=== PATIENT | female | born 1960 | race Caucasian/White ===

== ENCOUNTER 2019-08-15 21:41 | Inpatient (IN) ==
[2019-08-15] MEDS ORDERED: Ondansetron 4 mg VIAL 2 MG/ML 2 ml VIAL IV ONE (22:49)
[2019-08-15] MEDS ORDERED: Morphine 4 MG/ML VIAL (1 ml) IV ONE (22:49)
[2019-08-16 00:07] LABS: ABS Basophils 0.1 10^3/ul (0-0.2); ABS Lymphocytes 0.5 10^3/ul (1.0-4.8); ABS Monocytes 0.3 10^3/ul (0-0.8); Eosinophil % 0.1 %; Hematocrit 39 % (35-47); Hemoglobin 13.4 g/dL (12.0-16.0); Lymphocyte % 7.6 %; Mean Corpuscular HGB Conc 34 g/dL (31-36); Mean Corpuscular Hemoglobin 33 pg (27-31); Mean Corpuscular Volume 96 fL (80-97); Mean Platelet Volume 8.4 fL (7.4-10.4); Platelet Count 213 10^3/uL (150-450); Red Blood Count 4.06 10^6 /uL (3.70-4.87); Red Cell Distribution Width 14 % (10-15); White Blood Count 7.1 10^3/uL (3.5-10.8)
[2019-08-16 00:08] LABS: Urine Appearance Cloudy; Urine Bilirubin Negative (Negative); Urine Blood Negative (Negative); Urine Color Yellow; Urine Glucose 3+(>=500 mg/dL) (Negative); Urine Ketones 2+ (Negative); Urine Nitrite Negative (Negative); Urine Protein 1+(30 mg/dL) (Negative); Urine Specific Gravity 1.029 (1.010-1.030); Urine Urobilinogen Negative (Negative)
[2019-08-16 00:17] LABS: Urine Bacteria Absent (Absent); Urine Red Blood Cell Absent (Absent); Urine Squamous Epithelial Cell Present (Absent); Urine White Blood Cell 3+(>20/hpf) (Absent)
[2019-08-16 00:28] LABS: ALT 11 U/L (7-52); AST 13 U/L (13-39); Albumin 3.9 g/dL (3.2-5.2); Albumin/Globulin Ratio 1.6 (1-3); Alkaline Phosphatase 59 U/L (34-104); Anion Gap 25 mmol/L (2-11); BUN/Creatinine Ratio 20.7 (8-20); Blood Urea Nitrogen 19 mg/dL (6-24); C Reactive Protein 9.74 mg/L (<8.01); CO2 Carbon Dioxide 15 mmol/L (22-32); Calcium 8.9 mg/dL (8.6-10.3); Chloride 89 mmol/L (101-111); EGFR African American 75.3 (>60); EGFR Non-African American 62.3 (>60); Globulin 2.5 g/dL (2-4); Glucose 456 mg/dL (70-100); Potassium 3.4 mmol/L (3.5-5.0); Sodium 129 mmol/L (135-145); Total Protein 6.4 g/dL (6.4-8.9)
[2019-08-16] MEDS: NS 0.9% 1000 ml BAG 2,000 ML IV ONE ×2 (00:46→01:12)
[2019-08-16] MEDS ORDERED: Amoxicillin/Clavul 500/125 TAB (Augmentin 500 mg tab) PO ONE (00:54)
[2019-08-16 01:08] LABS: Alcohol, S < 10 mg/dL (<10)
[2019-08-16] MEDS ORDERED: Insulin REGULAR 100 unit/ml(*) IV PUSH ONE (01:16)
[2019-08-16] MEDS ORDERED: Morphine 4 MG/ML VIAL (1 ml) IV ONE (01:17)
[2019-08-16] MEDS ORDERED: Metoclopramide 5 MG/ML VIAL (10 mg) IV SLOW PU ONE (01:17)
[2019-08-16] MEDS ORDERED: Morphine 2 MG/ML SYRINGE IV PRN (01:58)
[2019-08-16] MEDS ORDERED: Ondansetron 4 mg VIAL 2 MG/ML 2 ml VIAL IV PRN (01:58)
[2019-08-16] MEDS ORDERED: NS 0.9% 1000 ml BAG 1,000 ML IV SCH ×2 (02:00→09:15)
[2019-08-16 02:43] LABS: Magnesium 1.7 mg/dL (1.9-2.7)
[2019-08-16] MEDS ORDERED: Iodixanol (CONTRAST) 320 MG/ML 100 ML SDV IV ONE (02:49)
[2019-08-16] MEDS ORDERED: Insulin Infusion 100unit/100mL 100 UNIT/100 ML BAG IV SCH (03:00)
[2019-08-16 03:18] LABS: Erythrocyte Sed Rate 17 mm/Hr (0-29)
[2019-08-16] MEDS: KCL 10 MEQ/50 ML IVPREMIX 10 MEQ/50 ML BAG IV SCH ×3 (03:22→05:36)
[2019-08-16] MEDS ORDERED: Magnesium Sulfate 2 gm BAG 2 GM/50 ML BAG IVPB ONE (03:33)
[2019-08-16] MEDS ORDERED: D5W 1/2 NS 40 Meq KCL 1000 ml 1,000 ML IV SCH (05:00)
[2019-08-16 05:08] LABS: ABS Lymphocytes 0.6 10^3/ul (1.0-4.8); ABS Monocytes 0.8 10^3/ul (0-0.8); Eosinophil % 0.1 %; Hematocrit 37 % (35-47); Hemoglobin 13.2 g/dL (12.0-16.0); Lymphocyte % 5.8 %; Mean Corpuscular HGB Conc 36 g/dL (31-36); Mean Corpuscular Hemoglobin 33 pg (27-31); Mean Corpuscular Volume 94 fL (80-97); Mean Platelet Volume 8.4 fL (7.4-10.4); Platelet Count 216 10^3/uL (150-450); Red Blood Count 3.97 10^6 /uL (3.70-4.87); Red Cell Distribution Width 14 % (10-15); White Blood Count 9.6 10^3/uL (3.5-10.8)
[2019-08-16 05:21] LABS: BUN/Creatinine Ratio 19.7 (8-20); Blood Urea Nitrogen 14 mg/dL (6-24); CO2 Carbon Dioxide 17 mmol/L (22-32); Calcium 7.9 mg/dL (8.6-10.3); Chloride 99 mmol/L (101-111); EGFR African American 101.6 (>60); Glucose 256 mg/dL (70-100); Sodium 129 mmol/L (135-145)
[2019-08-16 05:45] LABS: Anion Gap 13 mmol/L (2-11)
[2019-08-16] MEDS: Enoxaparin 40 MG/0.4 ML SYR(*) SUBCUT SCH (06:26)
[2019-08-16] MEDS: cefTRIAXone 1 gm/50 mL NS BAG 1 GM/50 ML BAG IVPB SCH (07:03)
[2019-08-16 08:54] LABS: BUN/Creatinine Ratio 18.9 (8-20); Calcium 8.6 mg/dL (8.6-10.3); EGFR African American 96.9 (>60); EGFR Non-African American 80.1 (>60); Potassium 3.8 mmol/L (3.5-5.0)
[2019-08-16] MEDS ORDERED: Dextrose 50% Syringe 50 ml 25 GM/50 ML SYRINGE IV PUSH PRN (09:13)
[2019-08-16 09:16] LABS: TSH (Thyroid Stimulating Horm) 20.51 mcIU/mL (0.34-5.60)
[2019-08-16] MEDS ORDERED: Insulin GLARGINE 100 un/ml (*) 10 ml VIAL SUBCUT SCH (10:00)
[2019-08-16] MEDS ORDERED: Insulin GLARGINE 100 un/ml (*) 10 ml VIAL SUBCUT ONE (10:27)
[2019-08-16 10:58] LABS: Free T4 1.09 ng/dL (0.61-1.12)
[2019-08-16] MEDS ORDERED: Naloxone 0.4 mg VIAL 0.4 mg/ml 1 ml VIAL IV PRN (11:17)
[2019-08-16] MEDS ORDERED: Prochlorperazine 5 mg/ml 2 ml VIAL (10 mg) IV PRN (11:17)
[2019-08-16] MEDS ORDERED: diPHENhydraMINE IV 50 MG/ML 1 ml VIAL (BENADRYL) IV PRN (11:17)
[2019-08-16] MEDS ORDERED: HYDROmorphone 1 MG/1 ML SYRINGE IV PRN (11:17)
[2019-08-16] MEDS ORDERED: Midazolam 2 mg/2 ml VIAL 1 mg/ml 2 ml VIAL (2 mg) ONE (11:38)
[2019-08-16] MEDS ORDERED: Propofol 10 MG/ML 20 ML BTL ONE (11:38)
[2019-08-16] MEDS ORDERED: fentaNYL 100 mcg/2 ml 50 MCG/ML VIAL ONE (11:38)
[2019-08-16] MEDS ORDERED: Iohexol 180 (CONTRAST) 10 ML SDV IV ONE (11:50)
[2019-08-16] MEDS ORDERED: Lactated Ringers 1000 ml BAG 1,000 ML IV SCH (12:00)
[2019-08-16] MEDS ORDERED: Phenylephrine 40 mcg/mL 10mL (400mcg) SYRINGE ONE (12:31)
[2019-08-16 12:36] LABS: BUN/Creatinine Ratio 15.5 (8-20); Blood Urea Nitrogen 11 mg/dL (6-24); CO2 Carbon Dioxide 22 mmol/L (22-32); Calcium 8.4 mg/dL (8.6-10.3); Chloride 100 mmol/L (101-111); EGFR African American 101.6 (>60); Glucose 132 mg/dL (70-100); Sodium 131 mmol/L (135-145)
[2019-08-16 12:45] LABS: Anion Gap 9 mmol/L (2-11)
[2019-08-16] MEDS: Insulin LISPRO 100 units/ml(*) SUBCUT SCH (20:10)
[2019-08-17] MEDS: Insulin LISPRO 100 units/ml(*) SUBCUT SCH ×7 (04:37→23:47)
[2019-08-17] MEDS: Enoxaparin 40 MG/0.4 ML SYR(*) SUBCUT SCH (05:57)
[2019-08-17] MEDS: Insulin GLARGINE 100 un/ml (*) 10 ml VIAL SUBCUT SCH (08:02)
[2019-08-17] MEDS: cefTRIAXone 1 gm/50 mL NS BAG 1 GM/50 ML BAG IVPB SCH (08:03)
[2019-08-17] MEDS ORDERED: Insulin GLARGINE 100 un/ml (*) 10 ml VIAL SUBCUT SCH (09:00)
[2019-08-17] MEDS: Magnesium Hydroxide LIQ 30 ML UDC PO SCH ×2 (17:52→20:26)
[2019-08-18] MEDS: Insulin LISPRO 100 units/ml(*) SUBCUT SCH ×6 (03:43→23:59)
[2019-08-18] MEDS: Enoxaparin 40 MG/0.4 ML SYR(*) SUBCUT SCH (06:03)
[2019-08-18 06:16] LABS: Calcium 8.4 mg/dL (8.6-10.3); EGFR African American 108.6 (>60); EGFR Non-African American 89.8 (>60); Potassium 3.6 mmol/L (3.5-5.0)
[2019-08-18] MEDS: Magnesium Hydroxide LIQ 30 ML UDC PO SCH ×2 (07:34→21:29)
[2019-08-18] MEDS: cefTRIAXone 1 gm/50 mL NS BAG 1 GM/50 ML BAG IVPB SCH (07:41)
[2019-08-18] MEDS: Insulin GLARGINE 100 un/ml (*) 10 ml VIAL SUBCUT SCH (07:41)
[2019-08-19 04:02] LABS: ABS Eosinophils 0.1 10^3/ul (0-0.6); ABS Monocytes 0.4 10^3/ul (0-0.8); Eosinophil % 4.2 %; Hematocrit 41 % (35-47); Hemoglobin 14.1 g/dL (12.0-16.0); Lymphocyte % 30.9 %; Mean Corpuscular HGB Conc 35 g/dL (31-36); Mean Corpuscular Hemoglobin 33 pg (27-31); Mean Corpuscular Volume 96 fL (80-97); Mean Platelet Volume 7.7 fL (7.4-10.4); Platelet Count 243 10^3/uL (150-450); Red Blood Count 4.29 10^6 /uL (3.70-4.87); Red Cell Distribution Width 14 % (10-15); White Blood Count 3.4 10^3/uL (3.5-10.8)
[2019-08-19 04:13] LABS: BUN/Creatinine Ratio 9.2 (8-20); Calcium 9.2 mg/dL (8.6-10.3); EGFR African American 93.9 (>60); EGFR Non-African American 77.6 (>60); Potassium 3.6 mmol/L (3.5-5.0)
[2019-08-19] MEDS: Insulin LISPRO 100 units/ml(*) SUBCUT SCH ×3 (04:19→12:35)
[2019-08-19 04:56] LABS: Thyroid Peroxidase Antibodies 33.98 IU/mL (<9)
[2019-08-19 05:10] LABS: Thyroglobulin Antibody II 1.2 IU/mL (<4.0)
[2019-08-19] MEDS: Enoxaparin 40 MG/0.4 ML SYR(*) SUBCUT SCH (05:26)
[2019-08-19 08:00] LABS: Magnesium 2.1 mg/dL (1.9-2.7)
[2019-08-19] MEDS: Magnesium Hydroxide LIQ 30 ML UDC PO SCH (08:24)
[2019-08-19] MEDS: cefTRIAXone 1 gm/50 mL NS BAG 1 GM/50 ML BAG IVPB SCH (08:26)
[2019-08-19] MEDS ORDERED: Insulin GLARGINE 100 un/ml (*) 10 ml VIAL SUBCUT SCH (09:00)
[2019-08-19 12:21] VITALS: BP 111/75
== END 2019-08-19 15:00 | disposition home or self-care (01) | DRG 446 ==
LOC: ED 21:41 → MEDTELE 08-16 01:54 → ICU 08-16 02:27 → MED 08-17 09:02
PROVIDERS: ADMIT Nurse Practitioner Family; ATTEND Internal Medicine

== ENCOUNTER 2023-08-17 13:26 | Inpatient (IN) ==
[2023-08-17 14:55] LABS: Hematocrit 38.9 % (35-45); Hemoglobin 12.4 g/dL (11.5-14.3); Mean Corpuscular Hemoglobin 25.5 pg (27-33); Mean Corpuscular Volume 79.7 fL (80-97); Red Blood Count 4.88 10^6/uL (3.63-4.92); Red Cell Distribution Width 17.6 % (12-17); White Blood Count 4.8 10^3/uL (3.8-11.8)
[2023-08-17 14:58] LABS: INR 0.96 (0.83-1.13)
[2023-08-17] MEDS: Lactated Ringers 1000 ml BAG 1,000 ML IV ONE (15:00)
[2023-08-17] MEDS ORDERED: Lactated Ringers 1000 ml BAG 1,000 ML IV SCH (15:00)
[2023-08-17 15:19] LABS: High Sens Troponin Baseline 7 pg/mL (<15)
[2023-08-17 15:31] LABS: ABS Eosinophils 0.1 10^3/uL (0.0-0.5); ABS Lymphocytes 0.9 10^3/uL (1.0-4.8); ABS Monocytes 0.5 10^3/uL (0.0-0.9); ABS Neutrophils 3.3 10^3/uL (1.5-7.6); Eosinophil % 2.7 %; Lymphocyte % 18.1 %; Mean Platelet Volume 8.4 fL (7.5-11.2); Platelet Count 319 10^3/uL (150-450)
[2023-08-17 15:49] LABS: ALT 20 U/L (7-52); Albumin 4.5 g/dL (3.2-5.2); Albumin/Globulin Ratio 1.7 (1-3); Alkaline Phosphatase 80 U/L (35-149); Anion Gap 10 mmol/L (2-16); Blood Urea Nitrogen 16 mg/dL (6-24); C Reactive Protein 9.72 mg/L (<8.01); CO2 Carbon Dioxide 26 mmol/L (22-32); Calcium 9.5 mg/dL (8.6-10.3); Chloride 87 mmol/L (101-111); Creatinine, Serum 0.89 mg/dL (0.51-0.95); Globulin 2.6 g/dL (2-4); Glucose 172 mg/dL (70-100); Lipase 26 U/L (11.0-82.0); Sodium 123 mmol/L (135-145); Total Bilirubin 0.4 mg/dL (0.2-1.0); Total Protein 7.1 g/dL (6.4-8.9); eGFR CKD-EPI 72.4 (>60)
[2023-08-17 16:18] LABS: High Sensitivity Troponin 1 Hr 6 pg/mL (<15)
[2023-08-17 16:26] LABS: Urine Appearance Turbid; Urine Bilirubin Negative (Negative); Urine Blood Negative (Negative); Urine Color Light-Yellow; Urine Glucose 3+ (>=300 mg/dL) (Negative); Urine Ketones Negative (Negative); Urine Nitrite Negative (Negative); Urine Protein Negative (Negative); Urine Specific Gravity 1.004 (1.002-1.030); Urine Urobilinogen Negative (Negative); Urine pH 6.5 (5.0-8.0)
[2023-08-17 16:34] LABS: Urine Bacteria 1+ /HPF (Absent); Urine Red Blood Cell 3+(>10/hpf) /HPF (0-Trace); Urine Squamous Epithelial Cell Present /HPF (Absent); Urine White Blood Cell 3+(>20/hpf) /HPF (0-Trace)
[2023-08-17] MEDS ORDERED: Polyethylene Glycol 3350 17 GM PACKET PO PRN (16:37)
[2023-08-17] MEDS ORDERED: Ondansetron 4 mg VIAL 2 MG/ML 2 ml VIAL IV PRN (16:37)
[2023-08-17] MEDS ORDERED: Senna TAB 8.6 mg TAB PO PRN (16:37)
[2023-08-17] MEDS ORDERED: Dextrose 50% Syringe 50 ml 25 GM/50 ML SYRINGE IV PUSH PRN (17:17)
[2023-08-17 17:23] LABS: Magnesium 1.8 mg/dL (1.9-2.7); Phosphorus 3.7 mg/dL (2.5-5.0); Potassium Redraw 3.8 mmol/L (3.5-5.0)
[2023-08-17] MEDS: Enoxaparin 40 MG/0.4 ML SYR SUBCUT SCH (18:04)
[2023-08-17 18:13] LABS: TSH Ultra Thyroid Stim Horm 3.74 mcIU/mL (0.34-5.60)
[2023-08-17 18:54] LABS: Osmolality Serum 264 mOsm/kg (275-295)
[2023-08-17 19:10] LABS: Potassium 3.8 mmol/L (3.5-5.0)
[2023-08-17 19:24] LABS: TSH Ultra Thyroid Stim Horm 5.24 mcIU/mL (0.34-5.60)
[2023-08-17 21:35] LABS: Calcium 9.4 mg/dL (8.6-10.3); Creatinine, Serum 0.89 mg/dL (0.51-0.95); eGFR CKD-EPI 72.4 (>60)
[2023-08-18] MEDS ORDERED: Insulin LISPRO FOR INSULIN PUMP SUBCUT SCH (04:00)
[2023-08-18 06:52] LABS: Calcium 8.6 mg/dL (8.6-10.3); Creatinine, Serum 0.77 mg/dL (0.51-0.95); Magnesium 1.9 mg/dL (1.9-2.7); Potassium 4.1 mmol/L (3.5-5.0); eGFR CKD-EPI 86.1 (>60)
[2023-08-18 07:04] LABS: ABS Eosinophils 0.2 10^3/uL (0.0-0.5); ABS Lymphocytes 0.9 10^3/uL (1.0-4.8); ABS Monocytes 0.4 10^3/uL (0.0-0.9); ABS Neutrophils 2.9 10^3/uL (1.5-7.6); Eosinophil % 4.3 %; Hematocrit 34.6 % (35-45); Hemoglobin 11.3 g/dL (11.5-14.3); Lymphocyte % 20.8 %; Mean Corpuscular Hemoglobin 26.6 pg (27-33); Mean Corpuscular Hgb Conc 32.7 g/dL (31-36); Mean Corpuscular Volume 81.4 fL (80-97); Mean Platelet Volume 8.4 fL (7.5-11.2); Platelet Count 252 10^3/uL (150-450); Red Blood Count 4.24 10^6/uL (3.63-4.92); Red Cell Distribution Width 17.7 % (12-17); White Blood Count 4.5 10^3/uL (3.8-11.8)
[2023-08-18 14:23] LABS: Urine Osmo 181 mOsm/kg (150-1150)
[2023-08-18] MEDS ORDERED: ESTRADIOL TRANSDERM SCH (22:00)
[2023-08-19] MEDS: Sulfur Hexaflouride MICROSPHR 25 MG VIAL IV ONE (09:40)
[2023-08-20 07:22] LABS: ABS Basophils 0.1 10^3/uL (0.0-0.1); ABS Eosinophils 0.2 10^3/uL (0.0-0.5); ABS Lymphocytes 1.1 10^3/uL (1.0-4.8); ABS Monocytes 0.4 10^3/uL (0.0-0.9); ABS Neutrophils 3.5 10^3/uL (1.5-7.6); Eosinophil % 3.6 %; Hematocrit 37.9 % (35-45); Hemoglobin 12.4 g/dL (11.5-14.3); Lymphocyte % 21.5 %; Mean Corpuscular Hemoglobin 26.5 pg (27-33); Mean Corpuscular Hgb Conc 32.6 g/dL (31-36); Mean Corpuscular Volume 81.2 fL (80-97); Mean Platelet Volume 8.8 fL (7.5-11.2); Nucleated Red Blood Cells % 0.1 %/100WBC (0.0-0.8); Platelet Count 306 10^3/uL (150-450); Red Blood Count 4.67 10^6/uL (3.63-4.92); Red Cell Distribution Width 17.8 % (12-17); White Blood Count 5.2 10^3/uL (3.8-11.8)
[2023-08-20 07:39] LABS: Calcium 9.1 mg/dL (8.6-10.3); Creatinine, Serum 1.02 mg/dL (0.51-0.95); Potassium 4.3 mmol/L (3.5-5.0); eGFR CKD-EPI 61.4 (>60)
[2023-08-21 06:24] LABS: Calcium 8.8 mg/dL (8.6-10.3); Creatinine, Serum 0.91 mg/dL (0.51-0.95); Magnesium 2.1 mg/dL (1.9-2.7); Potassium 4.5 mmol/L (3.5-5.0); eGFR CKD-EPI 70.4 (>60)
[2023-08-21 06:41] LABS: INR 0.95 (0.83-1.13)
[2023-08-21] MEDS ORDERED: ceFAZolin 2 GM in NS PREMIX 2 GM/100 ML BAG IVPB ONE (07:00)
[2023-08-21 07:16] LABS: Hemoglobin 12.6 g/dL (11.5-14.3); Mean Corpuscular Hemoglobin 26.3 pg (27-33); Mean Corpuscular Hgb Conc 32.4 g/dL (31-36); Mean Corpuscular Volume 81.2 fL (80-97); White Blood Count 4.3 10^3/uL (3.8-11.8)
[2023-08-21 07:52] LABS: ABS Eosinophils 0.2 10^3/uL (0.0-0.5); ABS Lymphocytes 0.9 10^3/uL (1.0-4.8); ABS Monocytes 0.4 10^3/uL (0.0-0.9); ABS Neutrophils 2.8 10^3/uL (1.5-7.6); Eosinophil % 3.8 %; Large Platelets Present; Lymphocyte % 21.4 %; Mean Platelet Volume 9.1 fL (7.5-11.2); Nucleated Red Blood Cells % 0.1 %/100WBC (0.0-0.8); Platelet Count 255 10^3/uL (150-450)
[2023-08-21] MEDS ORDERED: ceFAZolin 2 GM PREMIX 2 GM/50 ML BAG ONE (12:44)
[2023-08-21] MEDS ORDERED: Midazolam 5 mg/5 ml VIAL 1 mg/ml 5 ml VIAL (5 mg) ONE (13:11)
[2023-08-21] MEDS ORDERED: fentaNYL 100 mcg/2 ml 50 MCG/ML VIAL ONE (13:12)
[2023-08-21] MEDS ORDERED: Lidocaine 1% MPF 5 ML VIAL ONE (13:13)
[2023-08-21] MEDS: ceFAZolin 2 GM/50 ML BAG IV ONE (13:17)
[2023-08-21] MEDS: NS 0.9% 1000 ml BAG 1,000 ML IV SCH (14:12)
[2023-08-21] MEDS: Midazolam 10 mg/10 ml VIAL 1 mg/ml 10 ml VIAL (10 mg) IV SLOW PU ONE (14:12)
[2023-08-21] MEDS: fentaNYL 100 mcg/2 ml 50 MCG/ML VIAL IV SLOW PU ONE (14:12)
[2023-08-21] MEDS: ceFAZolin SYR FLUSH 1 GM/10 ML for pocket flush (cardiology) FLUSH ONE (14:25)
[2023-08-21] MEDS: ceFAZolin VIAL 1 GM in NS 0.9% 50 ML 50 ML IVPB SCH (22:44)
[2023-08-22] MEDS: ESTRADIOL TRANSDERM SCH (05:47)
[2023-08-22 06:22] LABS: Calcium 8.9 mg/dL (8.6-10.3); Creatinine, Serum 0.98 mg/dL (0.51-0.95); Potassium 5.1 mmol/L (3.5-5.0); eGFR CKD-EPI 64.5 (>60)
[2023-08-22] MEDS: SODIUM ZIRCONIUM CYCLOSILICATE 5 GM PACKET PO ONE (10:43)
[2023-08-22 12:19] VITALS: BP 166/98
== END 2023-08-22 13:00 | disposition home or self-care (01) | DRG 171 ==
LOC: ED 13:26 → EDHOLD 13:26 → MEDTELE 17:14 → ICU 08-20 16:01
PROVIDERS: ADMIT Student in an Organized Health Care Education/Training Program; ATTEND Student in an Organized Health Care Education/Training Program